=== PATIENT | male | born 1985 | race Hispanic/Latino ===

== ENCOUNTER 2017-12-07 23:33 | Emergency (ER) | payer SELFPAY ==
[2017-12-08] MEDS ORDERED: ACETAMINOPHEN 325 MG TAB ONE (00:18)
[2017-12-08] MEDS ORDERED: KETOROLAC TROMETHAMINE 60 MG/2 ML VIAL ONE (00:23)
[2017-12-08 00:46] LABS: RAPID GROUP A STREP NEGATIVE (NEGATIVE)
== END 2017-12-08 01:16 | disposition home or self-care (01) ==
LOC: EDH 23:33
DX: J10.1 Influenza due to other identified influenza virus with other respiratory manifestations (principal)
CPT/HCPCS: 87804 ×2; 87880; 96372; 99284; J1885

== ENCOUNTER 2021-02-11 18:50 | Inpatient (IN) | payer OTHER ==
[~2021-02-11] VITALS: Ht 177.8 cm; Wt 112.9 kg
[2021-02-11] MEDS ORDERED: ACETAMINOPHEN 325 MG TAB ONE (20:22)
[2021-02-11] MEDS ORDERED: KETOROLAC TROMETHAMINE 30MG/ML ONE (20:22)
[2021-02-11] MEDS ORDERED: ONDANSETRON 4 MG TABLET ONE (20:22)
[2021-02-11 20:56] LABS: BASOPHILS % (AUTO) 0.2 % (0.0-5.0); EOSINOPHILS % (AUTO) 0.2 % (0.0-8.0); HEMATOCRIT 47.2 % (42-54); LYMPHOCYTES % (AUTO) 18.9 % (21.0-51.0); MEAN CORPUSCULAR HEMOGLOBIN 28.9 pg (27.0-33.0); MEAN CORPUSCULAR HGB CONC 33.3 g/dL (32.0-36.0); MEAN CORPUSCULAR VOLUME 86.9 fL (79-99); MONOCYTES % (AUTO) 5.9 % (3.0-13.0); NEUTROPHILS % (AUTO) 74.6 % (40.0-77.0); PLATELET COUNT (AUTO) 207 K/uL (130-400); RED BLOOD CELL COUNT(AUTO) 5.43 MIL/uL (4.50-6.20); RED CELL DISTRIBUTION WIDTH 12.1 % (11.0-15.5); WHITE BLOOD COUNT (AUTO) 5.6 K/uL (4.8-10.8)
[2021-02-11 21:07] LABS: CREATININE 1.1 mg/dL (0.5-1.5); POTASSIUM 3.7 mmol/L (3.5-5.1)
[2021-02-11 21:23] LABS: RAPID GROUP A STREP NEGATIVE (NEGATIVE)
[2021-02-11 21:29] LABS: ALBUMIN 3.7 g/dL (3.5-5.0); BILIRUBIN,TOTAL 0.5 mg/dL (0.2-1.0); TOTAL PROTEIN, SERUM 8.2 g/dL (6.0-8.3)
[2021-02-11] MEDS ORDERED: AZITHROMYCIN 500MG+NS 250ML 250 ML IV SCH (22:00)
[2021-02-11] MEDS ORDERED: MAG HYDROX/AL HYDROX/SIMETH ES 30 ML SUSP UDCUP PO PRN (22:00)
[2021-02-11] MEDS ORDERED: LACTULOSE 20 GM/30 ML UDCUP PO PRN (22:00)
[2021-02-11] MEDS ORDERED: ACETAMINOPHEN 325 MG TAB PO PRN ×2 (22:00)
[2021-02-11] MEDS: CEFTRIAXONE SODIUM 1 GM IV SCH (22:00)
[2021-02-11] MEDS ORDERED: ONDANSETRON HCL 4 MG/2 ML VIAL IV PRN (22:00)
[2021-02-11] MEDS ORDERED: ACETAMINOPHEN-CODEINE 300/30MG TAB PO PRN ×2 (22:00)
[2021-02-11] MEDS ORDERED: SODIUM CHLORIDE 0.9% 1000ML 1,000 ML IV SCH (22:00)
[2021-02-12] MEDS ORDERED: CEFTRIAXONE SODIUM 1 GM ONE (01:43)
[2021-02-12] MEDS ORDERED: AZITHROMYCIN 250 MG TABLET PO ONE (01:43)
[2021-02-12] MEDS: AZITHROMYCIN 250 MG TABLET PO SCH (02:15)
[2021-02-12 04:27] LABS: BASOPHILS % (AUTO) 0.2 % (0.0-5.0); EOSINOPHILS % (AUTO) 0.5 % (0.0-8.0); HEMATOCRIT 41.3 % (42-54); LYMPHOCYTES % (AUTO) 17.8 % (21.0-51.0); MEAN CORPUSCULAR HEMOGLOBIN 29.4 pg (27.0-33.0); MEAN CORPUSCULAR HGB CONC 33.2 g/dL (32.0-36.0); MEAN CORPUSCULAR VOLUME 88.6 fL (79-99); MONOCYTES % (AUTO) 7.2 % (3.0-13.0); NEUTROPHILS % (AUTO) 73.8 % (40.0-77.0); PLATELET COUNT (AUTO) 187 K/uL (130-400); RED BLOOD CELL COUNT(AUTO) 4.66 MIL/uL (4.50-6.20); RED CELL DISTRIBUTION WIDTH 12.3 % (11.0-15.5); WHITE BLOOD COUNT (AUTO) 6.1 K/uL (4.8-10.8)
[2021-02-12 04:44] LABS: POTASSIUM 3.5 mmol/L (3.5-5.1)
[2021-02-12 05:06] LABS: BILIRUBIN,TOTAL 0.5 mg/dL (0.2-1.0); TOTAL PROTEIN, SERUM 6.7 g/dL (6.0-8.3)
[2021-02-12] MEDS ORDERED: ASPIRIN 81MG TAB.CHEW ONE (07:49)
[2021-02-12] MEDS ORDERED: ENOXAPARIN SODIUM 40 MG/0.4 ML SYRINGE SQ ONE (07:49)
[2021-02-12] MEDS ORDERED: FAMOTIDINE 20MG TAB 20 MG TAB ONE (07:49)
[2021-02-12 08:12] LABS: APPEARANCE,URINE Clear (CLEAR); BILIRUBIN,URINE Small (NEGATIVE); COLOR,URINE Dark Yellow (YELLOW); GLUCOSE, URINE (UA) Negative (NEGATIVE); KETONES,URINE >=80 mg/dL (NEGATIVE); LEUKOCYTE ESTERASE ,URINE Trace (NEGATIVE); NITRATE,URINE Negative (NEGATIVE); OCCULT BLOOD,URINE Negative (NEGATIVE); PROTEIN,URINE POS 2+ mg/dL (NEGATIVE)
[2021-02-12] MEDS ORDERED: ACETAMINOPHEN 325 MG TAB ONE (08:12)
[2021-02-12 08:19] LABS: AMPHET/METH SCREEN,URINE NEGATIVE (NEGATIVE); BARBITURATE SCREEN, URINE NEGATIVE (NEGATIVE); BENZODIAZEPINES SCREEN,URINE NEGATIVE (NEGATIVE); CANNABINOID SCREEN,URINE NEGATIVE (NEGATIVE); COCAINE SCREEN,URINE NEGATIVE (NEGATIVE); OPIATE SCREEN,URINE NEGATIVE (NEGATIVE); PHENCYCLIDINE SCREEN,URINE NEGATIVE (NEGATIVE)
[2021-02-12 08:23] LABS: BACTERIA,URINE Rare /HPF (None Seen); MUCUS,URINE Moderate LPF (None Seen); RBC,URINE 0-1 /HPF (0-1); SQUAMOUS EPITHELIAL CELL,UR Rare /HPF (0-2)
[2021-02-12] MEDS: ENOXAPARIN SODIUM 40 MG/0.4 ML SYRINGE SQ SCH (09:00)
[2021-02-12] MEDS: ASPIRIN 81MG TAB.CHEW PO SCH (09:00)
[2021-02-12] MEDS: FAMOTIDINE 20MG TAB 20 MG TAB PO SCH ×2 (09:00→21:00)
[2021-02-12] MEDS ORDERED: LACTATED RINGERS 1000ML IV SCH (10:30)
[2021-02-12] MEDS: LACTATED RINGERS 1000ML 1,000 ML IV SCH ×2 (10:30→20:30)
[2021-02-12] MEDS ORDERED: LACTATED RINGERS 1000ML 1,000 ML IV SCH (11:45)
[2021-02-12 16:30] VITALS: BP 138/83
[2021-02-12 19:01] VITALS: BP 119/67
[2021-02-12] MEDS: CEFTRIAXONE SODIUM 1 GM IV SCH (21:00)
[2021-02-12 23:29] VITALS: BP 120/67
[2021-02-13] MEDS: AZITHROMYCIN 250 MG TABLET PO SCH (02:15)
[2021-02-13 03:00] VITALS: BP 114/64
[2021-02-13 04:16] LABS: BASOPHILS % (AUTO) 0.2 % (0.0-5.0); EOSINOPHILS % (AUTO) 0.6 % (0.0-8.0); LYMPHOCYTES % (AUTO) 28.5 % (21.0-51.0); MEAN CORPUSCULAR HGB CONC 33.2 g/dL (32.0-36.0); MEAN CORPUSCULAR VOLUME 87.6 fL (79-99); MONOCYTES % (AUTO) 8.2 % (3.0-13.0); NEUTROPHILS % (AUTO) 62.1 % (40.0-77.0); PLATELET COUNT (AUTO) 200 K/uL (130-400); RED BLOOD CELL COUNT(AUTO) 4.34 MIL/uL (4.50-6.20); RED CELL DISTRIBUTION WIDTH 12.2 % (11.0-15.5); WHITE BLOOD COUNT (AUTO) 5.1 K/uL (4.8-10.8)
[2021-02-13 04:55] LABS: ALBUMIN 2.7 g/dL (3.5-5.0); BILIRUBIN,TOTAL 0.3 mg/dL (0.2-1.0); CREATININE 0.9 mg/dL (0.5-1.5); POTASSIUM 3.5 mmol/L (3.5-5.1); TOTAL PROTEIN, SERUM 6.4 g/dL (6.0-8.3)
[2021-02-13 06:15] LABS: CRP QUANTITATIVE 67.2 mg/L (0.00-9.0)
[2021-02-13] MEDS: LACTATED RINGERS 1000ML 1,000 ML IV SCH ×2 (06:30→16:13)
[2021-02-13 08:00] VITALS: BP 108/68
[2021-02-13] MEDS: FAMOTIDINE 20MG TAB 20 MG TAB PO SCH ×2 (08:29→20:07)
[2021-02-13] MEDS: DEXAMETHASONE SOD PHOSPHATE 4 MG/ML 1ML VIAL IVP SCH (08:29)
[2021-02-13] MEDS: ASPIRIN 81MG TAB.CHEW PO SCH (08:29)
[2021-02-13] MEDS: ENOXAPARIN SODIUM 40 MG/0.4 ML SYRINGE SQ SCH (08:30)
[2021-02-13] MEDS ORDERED: PHARMACY COMMUNICATION MISC SCH (09:30)
[2021-02-13 10:02] LABS: HEMOGLOBIN A1C 5.8 % (4.0-6.0)
[2021-02-13 12:00] VITALS: BP 115/66
[2021-02-13 16:00] VITALS: BP 122/74
[2021-02-13] MEDS ORDERED: LACTATED RINGERS 1000ML 1,000 ML IV ONE (16:12)
[2021-02-13] MEDS ORDERED: COMPOUND IV REFRIGERATED 1 EACH IVSOLN MISC PRN (17:15)
[2021-02-13] MEDS ORDERED: REMDESIVIR (EUA) 520 200 MG in SODIUM CHLORIDE 0.9% 250 ML IV ONE (17:15)
[2021-02-13] MEDS: CEFTRIAXONE SODIUM 1 GM IV SCH (20:07)
[2021-02-13 20:32] VITALS: BP 115/77
[2021-02-14] VITALS (7 sets, daily range): BP systolic 110–139; BP diastolic 55–73
[2021-02-14] MEDS: AZITHROMYCIN 250 MG TABLET PO SCH (00:53)
[2021-02-14 04:48] LABS: BASOPHILS % (AUTO) 0.2 % (0.0-5.0); HEMATOCRIT 39.7 % (42-54); LYMPHOCYTES % (AUTO) 22.5 % (21.0-51.0); MEAN CORPUSCULAR HEMOGLOBIN 29.2 pg (27.0-33.0); MEAN CORPUSCULAR HGB CONC 33.5 g/dL (32.0-36.0); MEAN CORPUSCULAR VOLUME 87.3 fL (79-99); MONOCYTES % (AUTO) 10.9 % (3.0-13.0); NEUTROPHILS % (AUTO) 65.5 % (40.0-77.0); PLATELET COUNT (AUTO) 262 K/uL (130-400); RED BLOOD CELL COUNT(AUTO) 4.55 MIL/uL (4.50-6.20); RED CELL DISTRIBUTION WIDTH 11.9 % (11.0-15.5); WHITE BLOOD COUNT (AUTO) 4.7 K/uL (4.8-10.8)
[2021-02-14 05:25] LABS: ALBUMIN 2.8 g/dL (3.5-5.0); BILIRUBIN,TOTAL 0.3 mg/dL (0.2-1.0); CREATININE 0.8 mg/dL (0.5-1.5); POTASSIUM 3.7 mmol/L (3.5-5.1); TOTAL PROTEIN, SERUM 6.7 g/dL (6.0-8.3)
[2021-02-14 05:33] LABS: BILIRUBIN,DIRECT 0.1 mg/dL (0.0-0.3)
[2021-02-14] MEDS: REMDESIVIR LABS MISC SCH (05:44)
[2021-02-14] MEDS: FAMOTIDINE 20MG TAB 20 MG TAB PO SCH ×2 (10:07→21:05)
[2021-02-14] MEDS: ENOXAPARIN SODIUM 40 MG/0.4 ML SYRINGE SQ SCH (10:07)
[2021-02-14] MEDS: ASPIRIN 81MG TAB.CHEW PO SCH (10:07)
[2021-02-14] MEDS: DEXAMETHASONE SOD PHOSPHATE 4 MG/ML 1ML VIAL IVP SCH (10:08)
[2021-02-14] MEDS: LACTATED RINGERS 1000ML 1,000 ML IV SCH ×2 (10:15→21:05)
[2021-02-14] MEDS ORDERED: POLYETHYLENE GLYCOL 3350 17 GM POWD.PACK PO PRN (14:45)
[2021-02-14] MEDS: REMDESIVIR (EUA) 520 100 MG in SODIUM CHLORIDE 0.9% 250 ML IV SCH (16:40)
[2021-02-14] MEDS: CEFTRIAXONE SODIUM 1 GM IV SCH (21:05)
[2021-02-14] MEDS: BENZONATATE 100 MG CAPSULE PO PRN (21:05)
[2021-02-14] MEDS: GUAIFENESIN-DM 200/20 MG 10 ML PO PRN (21:51)
[2021-02-15] MEDS: AZITHROMYCIN 250 MG TABLET PO SCH (03:01)
[2021-02-15 04:04] VITALS: BP 113/67
[2021-02-15] MEDS: REMDESIVIR LABS MISC SCH (06:00)
[2021-02-15 06:43] LABS: BASOPHILS % (AUTO) 0.1 % (0.0-5.0); HEMATOCRIT 38.8 % (42-54); LYMPHOCYTES % (AUTO) 21.1 % (21.0-51.0); MEAN CORPUSCULAR HEMOGLOBIN 28.3 pg (27.0-33.0); MEAN CORPUSCULAR VOLUME 85.7 fL (79-99); MONOCYTES % (AUTO) 9.4 % (3.0-13.0); NEUTROPHILS % (AUTO) 68.2 % (40.0-77.0); PLATELET COUNT (AUTO) 318 K/uL (130-400); RED BLOOD CELL COUNT(AUTO) 4.53 MIL/uL (4.50-6.20); RED CELL DISTRIBUTION WIDTH 11.9 % (11.0-15.5); WHITE BLOOD COUNT (AUTO) 6.9 K/uL (4.8-10.8)
[2021-02-15 07:05] LABS: CREATININE 0.7 mg/dL (0.5-1.5); CRP QUANTITATIVE 20.6 mg/L (0.00-9.0); POTASSIUM 3.5 mmol/L (3.5-5.1)
[2021-02-15 08:00] VITALS: BP 119/76
[2021-02-15] MEDS: FAMOTIDINE 20MG TAB 20 MG TAB PO SCH ×2 (08:54→20:12)
[2021-02-15] MEDS: ASPIRIN 81MG TAB.CHEW PO SCH (08:54)
[2021-02-15] MEDS: DEXAMETHASONE SOD PHOSPHATE 4 MG/ML 1ML VIAL IVP SCH (08:54)
[2021-02-15] MEDS: LACTATED RINGERS 1000ML 1,000 ML IV SCH ×2 (08:55→20:12)
[2021-02-15] MEDS: ENOXAPARIN SODIUM 40 MG/0.4 ML SYRINGE SQ SCH (08:55)
[2021-02-15 12:14] VITALS: BP 130/70
[2021-02-15 16:00] VITALS: BP 130/70
[2021-02-15] MEDS: REMDESIVIR (EUA) 520 100 MG in SODIUM CHLORIDE 0.9% 250 ML IV SCH (17:18)
[2021-02-15] MEDS: BENZONATATE 100 MG CAPSULE PO PRN (20:11)
[2021-02-15] MEDS: GUAIFENESIN-DM 200/20 MG 10 ML PO PRN (20:11)
[2021-02-15 20:15] VITALS: BP 146/87
[2021-02-15 23:38] VITALS: BP 123/65
[2021-02-16] MEDS: BENZONATATE 100 MG CAPSULE PO PRN (03:32)
[2021-02-16] MEDS: GUAIFENESIN-DM 200/20 MG 10 ML PO PRN ×2 (03:32→20:21)
[2021-02-16 04:19] VITALS: BP 139/80
[2021-02-16 06:07] LABS: BASOPHILS % (AUTO) 0.8 % (0.0-5.0); HEMATOCRIT 39.2 % (42-54); LYMPHOCYTES % (AUTO) 25.9 % (21.0-51.0); MEAN CORPUSCULAR HEMOGLOBIN 29.5 pg (27.0-33.0); MEAN CORPUSCULAR HGB CONC 34.4 g/dL (32.0-36.0); MEAN CORPUSCULAR VOLUME 85.8 fL (79-99); MONOCYTES % (AUTO) 10.6 % (3.0-13.0); NEUTROPHILS % (AUTO) 57.9 % (40.0-77.0); NUCLEATED RED BLOOD CELLS 0.2 % (0.0-0.19); PLATELET COUNT (AUTO) 316 K/uL (130-400); RED BLOOD CELL COUNT(AUTO) 4.57 MIL/uL (4.50-6.20); RED CELL DISTRIBUTION WIDTH 11.9 % (11.0-15.5); WHITE BLOOD COUNT (AUTO) 8.9 K/uL (4.8-10.8)
[2021-02-16 06:36] LABS: CREATININE 0.8 mg/dL (0.5-1.5); CRP QUANTITATIVE 9.6 mg/L (0.00-9.0); POTASSIUM 3.3 mmol/L (3.5-5.1)
[2021-02-16 07:43] VITALS: BP 110/70
[2021-02-16] MEDS: REMDESIVIR LABS MISC SCH (09:00)
[2021-02-16] MEDS: ASPIRIN 81MG TAB.CHEW PO SCH (09:34)
[2021-02-16] MEDS: FAMOTIDINE 20MG TAB 20 MG TAB PO SCH ×2 (09:34→19:42)
[2021-02-16] MEDS: DEXAMETHASONE SOD PHOSPHATE 4 MG/ML 1ML VIAL IVP SCH (09:34)
[2021-02-16] MEDS: ENOXAPARIN SODIUM 40 MG/0.4 ML SYRINGE SQ SCH (09:35)
[2021-02-16 11:16] VITALS: BP 123/70
[2021-02-16 15:47] VITALS: BP 108/56
[2021-02-16] MEDS: REMDESIVIR (EUA) 520 100 MG in SODIUM CHLORIDE 0.9% 250 ML IV SCH (18:40)
[2021-02-16 19:46] VITALS: BP 124/68
[2021-02-16 23:44] VITALS: BP 123/72
[2021-02-17 03:05] VITALS: BP 122/77
[2021-02-17 05:04] LABS: HEMATOCRIT 41.7 % (42-54); MEAN CORPUSCULAR HEMOGLOBIN 28.3 pg (27.0-33.0); MEAN CORPUSCULAR HGB CONC 33.3 g/dL (32.0-36.0); MEAN CORPUSCULAR VOLUME 84.9 fL (79-99); NUCLEATED RED BLOOD CELLS 0.2 % (0.0-0.19); RED BLOOD CELL COUNT(AUTO) 4.91 MIL/uL (4.50-6.20); RED CELL DISTRIBUTION WIDTH 11.8 % (11.0-15.5); WHITE BLOOD COUNT (AUTO) 10.3 K/uL (4.8-10.8)
[2021-02-17] MEDS: REMDESIVIR LABS MISC SCH (05:12)
[2021-02-17 05:27] LABS: CREATININE 0.8 mg/dL (0.5-1.5); CRP QUANTITATIVE 3.9 mg/L (0.00-9.0); POTASSIUM 3.4 mmol/L (3.5-5.1)
[2021-02-17 05:57] LABS: ALBUMIN 2.8 g/dL (3.5-5.0); BILIRUBIN,TOTAL 0.3 mg/dL (0.2-1.0); TOTAL PROTEIN, SERUM 6.2 g/dL (6.0-8.3)
[2021-02-17] MEDS ORDERED: APIX2.5T PO (07:33)
[2021-02-17] MEDS ORDERED: DEXA6TAB PO (07:33)
[2021-02-17 07:34] VITALS: BP 131/79
[2021-02-17] MEDS: ENOXAPARIN SODIUM 40 MG/0.4 ML SYRINGE SQ SCH (07:35)
[2021-02-17] MEDS: DEXAMETHASONE SOD PHOSPHATE 4 MG/ML 1ML VIAL IVP SCH (07:36)
[2021-02-17] MEDS: ASPIRIN 81MG TAB.CHEW PO SCH (07:36)
[2021-02-17] MEDS: FAMOTIDINE 20MG TAB 20 MG TAB PO SCH (07:36)
== END 2021-02-17 09:25 | disposition home or self-care (01) | DRG 177 ==
LOC: EDH 18:50 → INTOOBSV 18:51 → OBSVTOIN 18:51 → EDHIP 18:51 → 2AH 02-12 17:04
PROVIDERS: ADMIT Internal Medicine; ATTEND Internal Medicine
PROC: XW033E5 Introduction of Remdesivir Anti-infective into Peripheral Vein, Percutaneous Approach, New Technology Group 5 (ICD-10-PCS; principal; 2021-02-13)
DX: U07.1 COVID-19 (principal); J96.01 Acute respiratory failure with hypoxia; J12.82 Pneumonia due to coronavirus disease 2019; M62.82 Rhabdomyolysis; D68.59 Other primary thrombophilia; E66.9 Obesity, unspecified; E87.6 Hypokalemia; Z83.3 Family history of diabetes mellitus; Z68.35 Body mass index [BMI] 35.0-35.9, adult
CPT/HCPCS: 36415; 71045; 80048; 80053; 80076; 80305; 81001; 82550; 82728; 83036; 83605; 83615; 83690; 83880; 84145; 84484; 85025; 85027; 85378; 85384; 86140; 87040; 87426; 87804; 87880; 93970; G0378; J0696; J1100; J1650; J1885; J7050; J7120; Q0162